=== PATIENT | female | born 1960 | race Caucasian/White ===

== ENCOUNTER 2017-06-14 18:34 | Inpatient (IN) | payer OTHER ==
[~2017-06-14] VITALS: Ht 172.7 cm; Wt 83.3 kg
[~2017-06-14 18:34] MED LIST: AMOX1TAB61 PO; IPRA4AER IH; NYST100054 SWSW; TRAM50TA PO; Vancomycin Hcl PO
[2017-06-14] MEDS ORDERED: IV NORMAL SALINE 1000ML BAG 1,000 ML IV SCH ×2 (18:41→20:44)
[2017-06-14] MEDS ORDERED: methylPREDNISolone SOD SUCC PF 125 MG/2 ML VIAL. ONE (18:43)
[2017-06-14] MEDS ORDERED: IPRATRPIUM/ALBUTEROL 0.5/2.5MG 3 ML NEBU. NEB ONE ×3 (18:45)
[2017-06-14] MEDS ORDERED: 0.9 % SODIUM CHLORIDE 10 ML DISP.SYRIN. IV PRN (18:45)
[2017-06-14] MEDS ORDERED: methylPREDNISolone SOD SUCC PF 125 MG/2 ML VIAL. IV ONE (18:45)
--- NOTE | 2017-06-14 18:45 | PHYS DOC ---
Past Medical History Past Medical History: COPD Past Surgical History: No Surgical History Smoking: Cigarettes, Less than 1pk/day Alcohol Use: Occasionally Drug Use: None Adult General Chief Complaint Chief Complaint: SHORTNESS OF BREATH HPI HPI This patient is a pleasant 56-year-old female with a reported history of COPD recently completed a course of steroids who presents with shortness of breath that began 4 days ago. She is normally on a metered-dose inhaler at home and doing nebs as needed but she became progressively short of breath despite treatments. Patient is the primary historian but is having difficulty giving me a history secondary to respiratory distress. She denies any headache, fevers, chills but is having some chest pain with her shortness of breath that began with this increased tightness. She denies any trauma to her chest trauma to her lower legs lower leg swelling or pain. Patient denies any change in medications other than the fact she completed a course of steroids several days ago. She denies any travel outside the country or recent anabiotic use. Differential diagnosis: Acute myocardial ischemia, heart failure, cardiac tamponade, bronchospasm, pulmonary embolism, pneumothorax, pulmonary infection i.e. bronchitis or pneumonia, upper airway obstruction, anaphylaxis, aspiration , psychogenic, pulmonary contusion, toxidrome, pneumomediastinum, noncardiogenic pulmonary edema or ARDS, COPD, tuberculosis, cystic fibrosis, asthma, high altitude pulmonary edema, valvular dysfunction, cardiac dysrhythmia , stroke, neuromuscular diseases like myasthenia gravis gravis, ALS, Guillain- Freedman syndrome, metabolic acidosis to include diabetic ketoacidosis, sepsis, and obstructive disorders like massive obesity Was considered upon arrival given the patient's severity of symptoms 3 duo nebs or immediately ordered as well as an EKG, Solu-Medrol, IV Hep-Lock 2 as well as BiPAP machine. Because of patient's tachycardia immediate EKG was completed EKG timed 6:52 PM read by me 06/14/2017 shows a heart rate of 117. The P wave there were QRS sinus tachycardia there is a normal UT interval 146 which is normal QRS width of 86 which is normal, QTC which is 422 which is normal. There is some watered movement artifacts but there is no clear signs of cardiac ischemia with ST segment elevation or T-wave changes consistent with that finding. Review of Systems Review of Systems Constitutional: Denies fever or chills [] Eyes: Denies change in visual acuity, redness, or eye pain [] HENT: Denies nasal congestion or sore throat [] Respiratory: Complains of extreme shortness of breath with a nonproductive cough. Cardiovascular: No additional information not addressed in HPI [] GI: Denies abdominal pain, nausea, vomiting, bloody stools or diarrhea [] : Denies dysuria or hematuria [] Musculoskeletal: Denies back pain or joint pain [] Integument: Denies rash or skin lesions [] Neurologic: Denies headache, focal weakness or sensory changes [] Endocrine: Denies polyuria or polydipsia [] All other systems were reviewed and found to be within normal limits, except as documented in this note. Current Medications Current Medications Current Medications Medications (Trade) Dose Ordered Sig/Ken Start Time Stop Time Status Last Admin Dose Admin Albuterol/ Ipratropium (Duoneb) 3 ml 1X ONCE 06/14/17 18:45 06/14/17 18:49 DC 06/14/17 19:07 3 ML Lorazepam (Ativan) 2 mg STK-MED ONCE 06/14/17 18:43 06/14/17 18:44 DC Methylprednisolone Sodium Succinate (SOLU-Medrol 125MG VIAL) 125 mg STK-MED ONCE 06/14/17 18:43 06/14/17 18:44 DC Sodium Chloride (Normal Saline Flush) 10 ml QSHIFT PRN 06/14/17 18:45 Allergies Allergies Allergies Coded Allergies Type Severity Reaction Last Updated Verified codeine Adverse Reaction Intermediate Nausea and Vomiting 10/28/15 Yes Physical Exam Physical Exam Vital signs noted on arrival patient had to be tachypneic and tachycardic not hypoxic because of being on the nasal cannula is at this time satting 97% 4 L nasal cannula as Constitutional: As thin and cachectic she is in obvious distress she is not diaphoretic but she is exhibiting respiratory distress likely be able speak 2-5 word sentences, she is having some retractions and visual accessory muscle use. She is sitting in a tripod position with pursed lip breathing. HENT: Normocephalic, atraumatic, bilateral external ears normal, oropharynx dry no oral exudates she does have poor dentition, nose normal. [] Eyes: PERRLA, EOMI, conjunctiva normal, no discharge. [] Neck: Normal range of motion, no tenderness, supple, no stridor. [] Cardiovascular: Patient's heart rate is tachycardic with no murmurs, rubs or rubs. Lungs & Thorax: She has significant prolonged exhalation with quiet breath sounds obvious retractions there is some mild diaphoresis across her chest wall Abdomen: Bowel sounds normal, soft, no tenderness, no masses, no pulsatile masses. [] Skin: Warm, diaphoresis without erythema rash on her chest wall Extremities: No tenderness, no cyanosis, no clubbing, ROM intact, no edema. [] Neurologic: Alert and oriented X 3, normal motor function, normal sensory function, no focal deficits noted. [] Psychologic: She is very anxious having difficulty breathing sitting in a tripod position with pursed lip breathing Current Patient Data Vital Signs Vital Signs Date Time Temp Pulse Resp B/P (MAP) Pulse Ox O2 Delivery O2 Flow Rate FiO2 06/14/17 20:00 109 21 112/62 (79) 100 BiPAP/CPAP 06/14/17 18:35 97.6 97.6 Lab Values Laboratory Tests Test 06/14/17 18:40 06/14/17 18:45 06/14/17 19:05 06/14/17 20:05 Sodium Level 140 mmol/L (136-145) Potassium Level 3.9 mmol/L (3.5-5.1) Chloride Level 103 mmol/L (98-107) Carbon Dioxide Level 28 mmol/L (21-32) Anion Gap 9 (6-14) Blood Urea Nitrogen 12 mg/dL (7-20) Creatinine 0.8 mg/dL (0.6-1.0) Estimated GFR (Cockcroft-Gault) 74.5 Glucose Level 128 mg/dL (70-99) H Lactic Acid Level 1.7 mmol/L (0.4-2.0) Calcium Level 9.3 mg/dL (8.5-10.1) Magnesium Level 1.8 mg/dL (1.8-2.4) Total Bilirubin 0.4 mg/dL (0.2-1.0) Direct Bilirubin 0.1 mg/dL (0.0-0.2) Aspartate Amino Transferase (AST) 17 U/L (15-37) Alanine Aminotransferase (ALT) 23 U/L (14-59) Alkaline Phosphatase 75 U/L (46-116) Creatine Kinase 116 U/L (26-192) Creatine Kinase MB (Mass) 2.0 ng/mL (0.0-3.6) Creatine Kinase MB Relative Index 1.7 % (0-4) Troponin I Quantitative < 0.017 ng/mL (0.000-0.055) OX-Gav-A-Type Natriuretic Peptide 183 pg/mL (0-124) H Total Protein 7.9 g/dL (6.4-8.2) Albumin 4.0 g/dL (3.4-5.0) Lipase 150 U/L (73-393) Thyroid Stimulating Hormone (TSH) 4.936 uIU/mL (0.358-3.74) H White Blood Count 10.5 x10^3/uL (4.0-11.0) Red Blood Count 5.06 x10^6/uL (3.50-5.40) Hemoglobin 15.1 g/dL (12.0-15.5) Hematocrit 45.8 % (36.0-47.0) Mean Corpuscular Volume 91 fL (79-100) Mean Corpuscular Hemoglobin 30 pg (25-35) Mean Corpuscular Hemoglobin Concent 33 g/dL (31-37) Red Cell Distribution Width 14.1 % (11.5-14.5) Platelet Count 307 x10^3/uL (140-400) Neutrophils (%) (Auto) 53 % (31-73) Lymphocytes (%) (Auto) 29 % (24-48) Monocytes (%) (Auto) 10 % (0-9) H Eosinophils (%) (Auto) 8 % (0-3) H Basophils (%) (Auto) 1 % (0-3) Neutrophils # (Auto) 5.5 x10^3uL (1.8-7.7) Lymphocytes # (Auto) 3.0 x10^3/uL (1.0-4.8) Monocytes # (Auto) 1.0 x10^3/uL (0.0-1.1) Eosinophils # (Auto) 0.8 x10^3/uL (0.0-0.7) H Basophils # (Auto) 0.1 x10^3/uL (0.0-0.2) Influenza Type A Antigen Negative (NEGATIVE) Influenza Type B Antigen Negative (NEGATIVE) O2 Saturation 98 % (92-99) Arterial Blood pH 7.34 (7.35-7.45) L Arterial Blood pCO2 at Patient Temp 47 mmHg (35-46) H Arterial Blood pO2 at Patient Temp 110 mmHg (75-108) H Arterial Blood HCO3 25 mmol/L (21-28) Arterial Blood Base Excess -1 mmol/L (-3-3) FiO2 35.0 Laboratory Tests 06/14/17 18:45 Laboratory Tests 06/14/17 18:40 EKG EKG [] Radiology/Procedures Radiology/Procedures []Since chest x-ray single AP view read by me demonstrates hyperinflation with some blunted costophrenic angles possible slight pleural effusion of the bases bilaterally no acute infiltrate noted there is no card or megaly, no clear signs of congestive heart failure patient is a questionable calcified nodule in the left lower lung base. Time of chest x-rays 7:19 PM 06/14/2017 Course & Med Decision Making Course & Med Decision Making Pertinent Labs and Imaging studies reviewed. (See chart for details) []She presents with Differential diagnosis: Acute myocardial ischemia, heart failure, cardiac tamponade, bronchospasm, pulmonary embolism, pneumothorax, pulmonary infection i.e. bronchitis or pneumonia, upper airway obstruction, anaphylaxis, aspiration, psychogenic, pulmonary contusion, toxidrome, pneumomediastinum, noncardiogenic pulmonary edema or ARDS, COPD, tuberculosis, cystic fibrosis, asthma, high altitude pulmonary edema, valvular dysfunction, cardiac dysrhythmia, stroke, neuromuscular diseases like myasthenia gravis gravis, ALS, Guillain-Freedman syndrome, metabolic acidosis to include diabetic ketoacidosis, sepsis, and obstructive disorders like massive obesity her shortness of breath. My initial consideration as COPD given her history and physical exam findings. Upon immediate arrival patient was given DuoNeb treatments 3, slightly Medrol, fluids and antianxiety medications. Time is now 7:20 PM patient is felt markedly improved her saturations are 100% on BiPAP mask. She has no lower anxious no longer diaphoretic she is moving more air although she is exhibiting more wheezing in all lung aguilar this is apparent that her bronchospasm was pretty severe and is now improved. 7:40 PM patient's initial troponin is negative, patient's CMP is unremarkable, patient's proBNP is 178 which is mildly elevated but given her symptoms doubt congestive heart failure. Patient felt markedly improved still on BiPAP she'll be admitted to the hospital after review of her chest x-ray demonstrates no occult infiltrate. We will add a respiratory fluoroquinolone to her treatment plan and admitted her to internal medicine service. Seen Dr. LYONS the past for her respiratory difficulties and will consult him as a assessment nurse practitioner. Tribal Judge note: Dr. Rai Tribal Judge called at of the service 8:20 p.m. Consult called back at 8:21 pm Discussed the case I presented and they agreed with admission. Time of acceptance a 8:21 pm I spent approximately 45-50 minutes working and engaged directly in the patient care providing critical care evaluation this includes but not limited to time spent engaged in work directly related to the individual patients care. I spent time at the bedside, reviewing test results, discussing the case with staff, documenting the medical record and time spent with EMS discussing specific treatment issues when the patient presented and during his evaluation. Time is now 8:40 PM patient is resting quietly On BiPAP machine patient's ABG completed at approximately 8:13 p.m. demonstrates a pH is 7.34 PCO2 of 47 PO2 109 bicarbonate 25 base excess is -1. Patient's is resting comfortably she is likely a mild CO2 retainer given her COPD but she is resting calmly no changes in the BiPAP will be made at this time. Dragon Disclaimer Dragon Disclaimer This electronic medical record was generated, in whole or in part, using a voice recognition dictation system. Departure Departure Impression: Primary Impression: COPD exacerbation Additional Impressions: Chest pain Hypothyroidism Disposition: 09 ADMITTED INPATIENT Admitting Physician: Other Condition: GUARDED Referrals: TRINY SOLO (PCP) Problem Qualifiers CLIFFORD VICENTE MD Jun 14, 2017 18:45
[2017-06-14 18:52] LABS: BASO # 0.1 x10^3/uL (0.0-0.2); BASO % 1 % (0-3); EOS % 8 % (0-3); HEMATOCRIT 45.8 % (36.0-47.0); HEMOGLOBIN 15.1 g/dL (12.0-15.5); LYMPH % 29 % (24-48); MEAN CORPUSCULAR HEMOGLOBIN 30 pg (25-35); MEAN CORPUSCULAR HGB CONC 33 g/dL (31-37); MEAN CORPUSCULAR VOLUME 91 fL (79-100); MONO % 10 % (0-9); NEUT % 53 % (31-73); PLATELET COUNT 307 x10^3/uL (140-400); RED BLOOD COUNT 5.06 x10^6/uL (3.50-5.40); RED CELL DISTRIBUTION WIDTH 14.1 % (11.5-14.5); WHITE BLOOD COUNT 10.5 x10^3/uL (4.0-11.0)
--- NOTE | 2017-06-14 18:55 | EKG ---
[facility] [address] [place] [address] Test Date: 2017-06-14 Test Time: 18:52:44 Pat Name: CRESCENCIO BALL Department: Room: Gender: F Inventory Management Specialist: ELVA : 1960 Requested By: CLIFFORD VICENTE Order Number: [id number] Reading MD: Herb Bernabe MD Measurements Intervals [place] Rate: 117 P: 90 NE: 146 QRS: 63 QRSD: 86 T: 38 QT: 314 QTc: 442 Interpretive Statements SINUS TACHYCARDIA Electronically Signed On 06-16-2017 16:35:40 BOARD WINDER by Herb Bernabe MD
[2017-06-14 19:04] LABS: CALCIUM 9.3 mg/dL (8.5-10.1); CREATININE 0.8 mg/dL (0.6-1.0); GFR 74.5; POTASSIUM 3.9 mmol/L (3.5-5.1)
[2017-06-14 19:18] LABS: DIRECT BILIRUBIN 0.1 mg/dL (0.0-0.2); MAGNESIUM 1.8 mg/dL (1.8-2.4); TOTAL BILIRUBIN 0.4 mg/dL (0.2-1.0); TOTAL PROTEIN 7.9 g/dL (6.4-8.2)
[2017-06-14 19:32] LABS: OBC FLU VALID
[2017-06-14 20:15] LABS: HCO3 ABG 25 mmol/L (21-28); PCO2 ABG 47 mmHg (35-46); PH ABG 7.34 (7.35-7.45); PO2 ABG 110 mmHg (75-108); SAT O2 ABG 98 % (92-99)
[2017-06-14] MEDS ORDERED: fentaNYL PF VIAL 100 MCG/2 ML VIAL IV PRN (20:45)
[2017-06-14] MEDS ORDERED: ACETAMINOPHEN 325 MG TABLET. PO PRN (20:45)
[2017-06-14] MEDS ORDERED: ONDANSETRON PF 4 MG/2 ML VIAL. IV PRN (20:45)
[2017-06-14 22:00] VITALS: BP 133/94
[2017-06-14 22:15] VITALS: BP 111/61
[2017-06-14 22:30] VITALS: BP 91/61
[2017-06-14 22:45] VITALS: BP 97/64
[2017-06-14 23:15] VITALS: BP 101/64
[2017-06-14] MEDS ORDERED: PNEUMOCOCCAL VAX SCREEN BY RX. MC PRN (23:15)
[2017-06-15] VITALS (15 sets, daily range): BP systolic 84–133; BP diastolic 52–78
--- NOTE | 2017-06-15 00:48 | HP ---
ADMIT DATE: 06/14/2017 CHIEF COMPLAINT: Shortness of breath. HISTORY OF PRESENT ILLNESS: The patient is a 56-year-old smoker with history of COPD, who presented to the Emergency Room with a 4-day history of shortness of breath. She actually had a recent course of steroids for shortness of breath, has a meter dose inhalers as well as nebs at home and became progressively short of breath despite all her inhalers and nebulizers. She denies any fevers or chills. Denies any new cough, although has a chronic smoker's cough, which may have over the past 2 days, changed a little bit in its productiveness. She denies any stuffy or runny nose, any headaches or sore throat. In the Emergency Room, she was found with a significant hypoxia as well as tachycardia and was therefore admitted for further management. PAST MEDICAL HISTORY: COPD. FAMILY HISTORY: No lung or heart history known in family. SOCIAL HISTORY: Lives with her . Smokes less than a pack. Denies any alcohol or drug use. ALLERGIES: CODEINE, causing nausea. MEDICATIONS: MAR reconciled with home medications. REVIEW OF SYSTEMS: Positive as per HPI. She specifically denies any fevers or chills, any headaches or any nausea or vomiting. May have had some chest pain when she was severely short of breath prior to admission, now resolved and no GI symptoms. Rest of organ system review is negative. PHYSICAL EXAMINATION: VITAL SIGNS: From today show a blood pressure of 97/64 and heart rate of 102. She is afebrile and currently on BiPAP. GENERAL: This is an obese 56-year-old woman, alert and oriented, in mild respiratory distress, BiPAP in place. HEENT: Shows no scleral icterus. NECK: Supple. LUNGS: Have wheezes bilaterally. HEART: Tachycardic. ABDOMEN: Positive bowel sounds. Soft and nontender. EXTREMITIES: Show no edema. SKIN: Warm, soft and dry. NEUROLOGICAL: She appears grossly intact. LABORATORY DATA: CBC with a WBC of 10.5, hemoglobin 15.1 and platelets of 307. BUN and creatinine of 12 and 0.8. Normal electrolytes. Normal LFTs. TSH at 4.9. Troponin negative. Pro-BNP is 183. Serologies for flu is negative. IMAGING STUDIES: A chest x-ray reviewed by myself shows mild flattening of the diaphragms and no acute process. ASSESSMENT AND PLAN: The patient is a 56-year-old woman presenting with a chronic obstructive pulmonary disease exacerbation. She has been started on IV steroids, currently on bilevel positive airway pressure. We will continue nebulizers as well. Her home medications consist only of nebulizers, inhalers and mucolytics. We will start her on Mucinex here as needed. Obtain pulmonary consult in the morning. Because of her having had chest pain prior to admission, a Troponin series will be obtained. Initial one was normal. If need be, Cardiology will be consulted in the morning. Doubt this is cardiac in etiology but rather related to her chronic obstructive pulmonary disease. She continues to smoke despite having had chronic obstructive pulmonary disease for quite a while and frequent exacerbations, although never as severe as this. She is now more convinced that at this time to quit smoking. Nicotine patch will be made available to her p.r.n. ANDERS HEARN MD DR: MONIK/manny JOB#: [id number] / [id number] TRINY Johnston
[2017-06-15] MEDS ORDERED: methylPREDNISolone SOD SUCC PF 40 MG/ML VIAL. IV SCH (06:00)
--- NOTE | 2017-06-15 08:28 | RAD ---
EXAM: Chest one view. HISTORY: Shortness of breath. COMPARISON: 12/17/2015. FINDINGS: A frontal view of the chest is obtained. Hyperinflation is consistent with chronic obstructive pulmonary disease. There are no confluent infiltrates. There is no pneumothorax or pleural effusion. The heart is not enlarged. IMPRESSION: 1. Chronic obstructive pulmonary disease. No confluent infiltrates.
[2017-06-15] MEDS ORDERED: PNEUMOC CONJ VACC 23-VALENT 0.5 ML VIAL. VAX IM ONE (09:00)
[2017-06-15] MEDS: IPRATRPIUM/ALBUTEROL 0.5/2.5MG 3 ML NEBU. NEB SCH ×4 (09:15→20:17)
[2017-06-15] MEDS: NICOTINE 21MG PATCH. TD SCH (11:16)
--- NOTE | 2017-06-15 12:30 | PDOC ---
PULMONARY PROGRESS NOTES Vitals Vital Signs Date Time Temp Pulse Resp B/P (MAP) Pulse Ox O2 Delivery O2 Flow Rate FiO2 06/15/17 11:00 98.2 98 25 101/64 (76) 94 Nasal Cannula 2.0 98.2 General: Alert, No acute distress Lungs: Other Cardiovascular: S1 Abdomen: Soft Extremities: Other Labs Laboratory Tests Test 06/14/17 18:40 06/14/17 18:45 06/14/17 19:05 06/14/17 20:05 Sodium Level 140 mmol/L (136-145) Potassium Level 3.9 mmol/L (3.5-5.1) Chloride Level 103 mmol/L (98-107) Carbon Dioxide Level 28 mmol/L (21-32) Anion Gap 9 (6-14) Blood Urea Nitrogen 12 mg/dL (7-20) Creatinine 0.8 mg/dL (0.6-1.0) Estimated GFR (Cockcroft-Gault) 74.5 Glucose Level 128 mg/dL (70-99) Lactic Acid Level 1.7 mmol/L (0.4-2.0) Calcium Level 9.3 mg/dL (8.5-10.1) Magnesium Level 1.8 mg/dL (1.8-2.4) Total Bilirubin 0.4 mg/dL (0.2-1.0) Direct Bilirubin 0.1 mg/dL (0.0-0.2) Aspartate Amino Transf (AST/SGOT) 17 U/L (15-37) Alanine Aminotransferase (ALT/SGPT) 23 U/L (14-59) Alkaline Phosphatase 75 U/L (46-116) Creatine Kinase 116 U/L (26-192) Creatine Kinase MB (Mass) 2.0 ng/mL (0.0-3.6) Creatine Kinase MB Relative Index 1.7 % (0-4) Troponin I Quantitative < 0.017 ng/mL (0.000-0.055) EE-Xxl-N-Type Natriuretic Peptide 183 pg/mL (0-124) Total Protein 7.9 g/dL (6.4-8.2) Albumin 4.0 g/dL (3.4-5.0) Lipase 150 U/L (73-393) Thyroid Stimulating Hormone (TSH) 4.936 uIU/mL (0.358-3.74) White Blood Count 10.5 x10^3/uL (4.0-11.0) Red Blood Count 5.06 x10^6/uL (3.50-5.40) Hemoglobin 15.1 g/dL (12.0-15.5) Hematocrit 45.8 % (36.0-47.0) Mean Corpuscular Volume 91 fL (79-100) Mean Corpuscular Hemoglobin 30 pg (25-35) Mean Corpuscular Hemoglobin Concent 33 g/dL (31-37) Red Cell Distribution Width 14.1 % (11.5-14.5) Platelet Count 307 x10^3/uL (140-400) Neutrophils (%) (Auto) 53 % (31-73) Lymphocytes (%) (Auto) 29 % (24-48) Monocytes (%) (Auto) 10 % (0-9) Eosinophils (%) (Auto) 8 % (0-3) Basophils (%) (Auto) 1 % (0-3) Neutrophils # (Auto) 5.5 x10^3uL (1.8-7.7) Lymphocytes # (Auto) 3.0 x10^3/uL (1.0-4.8) Monocytes # (Auto) 1.0 x10^3/uL (0.0-1.1) Eosinophils # (Auto) 0.8 x10^3/uL (0.0-0.7) Basophils # (Auto) 0.1 x10^3/uL (0.0-0.2) Influenza Type A Antigen Negative (NEGATIVE) Influenza Type B Antigen Negative (NEGATIVE) O2 Saturation 98 % (92-99) Arterial Blood pH 7.34 (7.35-7.45) Arterial Blood pCO2 at Patient Temp 47 mmHg (35-46) Arterial Blood pO2 at Patient Temp 110 mmHg (75-108) Arterial Blood HCO3 25 mmol/L (21-28) Arterial Blood Base Excess -1 mmol/L (-3-3) FiO2 35.0 Test 06/15/17 02:50 06/15/17 08:45 Troponin I Quantitative < 0.017 ng/mL (0.000-0.055) < 0.017 ng/mL (0.000-0.055) Laboratory Tests Test 06/14/17 18:40 06/14/17 18:45 06/14/17 19:05 06/14/17 20:05 Sodium Level 140 mmol/L (136-145) Potassium Level 3.9 mmol/L (3.5-5.1) Chloride Level 103 mmol/L (98-107) Carbon Dioxide Level 28 mmol/L (21-32) Anion Gap 9 (6-14) Blood Urea Nitrogen 12 mg/dL (7-20) Creatinine 0.8 mg/dL (0.6-1.0) Estimated GFR (Cockcroft-Gault) 74.5 Glucose Level 128 mg/dL (70-99) Lactic Acid Level 1.7 mmol/L (0.4-2.0) Calcium Level 9.3 mg/dL (8.5-10.1) Magnesium Level 1.8 mg/dL (1.8-2.4) Total Bilirubin 0.4 mg/dL (0.2-1.0) Direct Bilirubin 0.1 mg/dL (0.0-0.2) Aspartate Amino Transf (AST/SGOT) 17 U/L (15-37) Alanine Aminotransferase (ALT/SGPT) 23 U/L (14-59) Alkaline Phosphatase 75 U/L (46-116) Creatine Kinase 116 U/L (26-192) Creatine Kinase MB (Mass) 2.0 ng/mL (0.0-3.6) Creatine Kinase MB Relative Index 1.7 % (0-4) Troponin I Quantitative < 0.017 ng/mL (0.000-0.055) YU-Irh-N-Type Natriuretic Peptide 183 pg/mL (0-124) Total Protein 7.9 g/dL (6.4-8.2) Albumin 4.0 g/dL (3.4-5.0) Lipase 150 U/L (73-393) Thyroid Stimulating Hormone (TSH) 4.936 uIU/mL (0.358-3.74) White Blood Count 10.5 x10^3/uL (4.0-11.0) Red Blood Count 5.06 x10^6/uL (3.50-5.40) Hemoglobin 15.1 g/dL (12.0-15.5) Hematocrit 45.8 % (36.0-47.0) Mean Corpuscular Volume 91 fL (79-100) Mean Corpuscular Hemoglobin 30 pg (25-35) Mean Corpuscular Hemoglobin Concent 33 g/dL (31-37) Red Cell Distribution Width 14.1 % (11.5-14.5) Platelet Count 307 x10^3/uL (140-400) Neutrophils (%) (Auto) 53 % (31-73) Lymphocytes (%) (Auto) 29 % (24-48) Monocytes (%) (Auto) 10 % (0-9) Eosinophils (%) (Auto) 8 % (0-3) Basophils (%) (Auto) 1 % (0-3) Neutrophils # (Auto) 5.5 x10^3uL (1.8-7.7) Lymphocytes # (Auto) 3.0 x10^3/uL (1.0-4.8) Monocytes # (Auto) 1.0 x10^3/uL (0.0-1.1) Eosinophils # (Auto) 0.8 x10^3/uL (0.0-0.7) Basophils # (Auto) 0.1 x10^3/uL (0.0-0.2) Influenza Type A Antigen Negative (NEGATIVE) Influenza Type B Antigen Negative (NEGATIVE) O2 Saturation 98 % (92-99) Arterial Blood pH 7.34 (7.35-7.45) Arterial Blood pCO2 at Patient Temp 47 mmHg (35-46) Arterial Blood pO2 at Patient Temp 110 mmHg (75-108) Arterial Blood HCO3 25 mmol/L (21-28) Arterial Blood Base Excess -1 mmol/L (-3-3) FiO2 35.0 Test 06/15/17 02:50 06/15/17 08:45 Troponin I Quantitative < 0.017 ng/mL (0.000-0.055) < 0.017 ng/mL (0.000-0.055) Medications Active Scripts Medications Dose Route/Sig Max Daily Dose Days Date Category Combivent Respimat Inhal (Ipratropium/Albuterol Sulfate) 4 Gm Aer.w.adap 1 Puff IH QID 11/09/15 Reported Combivent Respimat Inhal (Ipratropium/Albuterol Sulfate) 4 Gm Aer.w.adap 1 Puff IH QID 11/09/15 Reported Tramadol Hcl 50 Mg Tablet 50 Mg PO PRN Q6HRS PRN 11/09/15 Rx Impression . FULL CONSULT DICTATED AECOPD RESP FAILURE TOBACCO USE TRANSFER TO FLOOR SEE ORDERS THANKS NIKKI RONQUILLO MD Jun 15, 2017 12:30
--- NOTE | 2017-06-15 12:57 | PDOC ---
PROGRESS NOTES Chief Complaint Chief Complaint COPD Exacerbation Colitis Hypothyroidism Chest pain History of Present Illness History of Present Illness Pt seen and examined in the ICU c/o productive cough and SOA Vitals Vitals Vital Signs Date Time Temp Pulse Resp B/P (MAP) Pulse Ox O2 Delivery O2 Flow Rate FiO2 06/15/17 11:00 98.2 98 25 101/64 (76) 94 Nasal Cannula 2.0 98.2 Physical Exam General: Alert, Oriented X3, No acute distress Heart: Regular rate, No murmurs Lungs: Clear, Other Abdomen: Normal bowel sounds, Soft, No tenderness Extremities: No cyanosis, Normal pulses Skin: No rashes, No breakdown Labs LABS Laboratory Tests Test 06/14/17 18:40 06/14/17 18:45 06/14/17 19:05 06/14/17 20:05 Sodium Level 140 mmol/L (136-145) Potassium Level 3.9 mmol/L (3.5-5.1) Chloride Level 103 mmol/L (98-107) Carbon Dioxide Level 28 mmol/L (21-32) Anion Gap 9 (6-14) Blood Urea Nitrogen 12 mg/dL (7-20) Creatinine 0.8 mg/dL (0.6-1.0) Estimated GFR (Cockcroft-Gault) 74.5 Glucose Level 128 mg/dL (70-99) Lactic Acid Level 1.7 mmol/L (0.4-2.0) Calcium Level 9.3 mg/dL (8.5-10.1) Magnesium Level 1.8 mg/dL (1.8-2.4) Total Bilirubin 0.4 mg/dL (0.2-1.0) Direct Bilirubin 0.1 mg/dL (0.0-0.2) Aspartate Amino Transf (AST/SGOT) 17 U/L (15-37) Alanine Aminotransferase (ALT/SGPT) 23 U/L (14-59) Alkaline Phosphatase 75 U/L (46-116) Creatine Kinase 116 U/L (26-192) Creatine Kinase MB (Mass) 2.0 ng/mL (0.0-3.6) Creatine Kinase MB Relative Index 1.7 % (0-4) Troponin I Quantitative < 0.017 ng/mL (0.000-0.055) NU-Eaw-U-Type Natriuretic Peptide 183 pg/mL (0-124) Total Protein 7.9 g/dL (6.4-8.2) Albumin 4.0 g/dL (3.4-5.0) Lipase 150 U/L (73-393) Thyroid Stimulating Hormone (TSH) 4.936 uIU/mL (0.358-3.74) White Blood Count 10.5 x10^3/uL (4.0-11.0) Red Blood Count 5.06 x10^6/uL (3.50-5.40) Hemoglobin 15.1 g/dL (12.0-15.5) Hematocrit 45.8 % (36.0-47.0) Mean Corpuscular Volume 91 fL (79-100) Mean Corpuscular Hemoglobin 30 pg (25-35) Mean Corpuscular Hemoglobin Concent 33 g/dL (31-37) Red Cell Distribution Width 14.1 % (11.5-14.5) Platelet Count 307 x10^3/uL (140-400) Neutrophils (%) (Auto) 53 % (31-73) Lymphocytes (%) (Auto) 29 % (24-48) Monocytes (%) (Auto) 10 % (0-9) Eosinophils (%) (Auto) 8 % (0-3) Basophils (%) (Auto) 1 % (0-3) Neutrophils # (Auto) 5.5 x10^3uL (1.8-7.7) Lymphocytes # (Auto) 3.0 x10^3/uL (1.0-4.8) Monocytes # (Auto) 1.0 x10^3/uL (0.0-1.1) Eosinophils # (Auto) 0.8 x10^3/uL (0.0-0.7) Basophils # (Auto) 0.1 x10^3/uL (0.0-0.2) Influenza Type A Antigen Negative (NEGATIVE) Influenza Type B Antigen Negative (NEGATIVE) O2 Saturation 98 % (92-99) Arterial Blood pH 7.34 (7.35-7.45) Arterial Blood pCO2 at Patient Temp 47 mmHg (35-46) Arterial Blood pO2 at Patient Temp 110 mmHg (75-108) Arterial Blood HCO3 25 mmol/L (21-28) Arterial Blood Base Excess -1 mmol/L (-3-3) FiO2 35.0 Test 06/15/17 02:50 06/15/17 08:45 Troponin I Quantitative < 0.017 ng/mL (0.000-0.055) < 0.017 ng/mL (0.000-0.055) Review of Systems Review of Systems General: fatigue GI: No n/v Resp: productive cough Assessment and Plan Assessmemt and Plan Problems Medical Problems: (1) Chest pain Status: Acute (2) COPD exacerbation Status: Acute (3) Hypothyroidism Status: Acute Assessment: COPD Exacerbation Plan: Recheck labs in am Continue Antibiotics Continue breathing treatment and o2 monitoring Continue home medications Await pulmonology input Problems: Comment Review of Relevant I have reviewed the following items leila (where applicable) has been applied. Labs Laboratory Tests Test 06/14/17 18:40 06/14/17 18:45 06/14/17 19:05 06/14/17 20:05 Sodium Level 140 mmol/L (136-145) Potassium Level 3.9 mmol/L (3.5-5.1) Chloride Level 103 mmol/L (98-107) Carbon Dioxide Level 28 mmol/L (21-32) Anion Gap 9 (6-14) Blood Urea Nitrogen 12 mg/dL (7-20) Creatinine 0.8 mg/dL (0.6-1.0) Estimated GFR (Cockcroft-Gault) 74.5 Glucose Level 128 mg/dL (70-99) Lactic Acid Level 1.7 mmol/L (0.4-2.0) Calcium Level 9.3 mg/dL (8.5-10.1) Magnesium Level 1.8 mg/dL (1.8-2.4) Total Bilirubin 0.4 mg/dL (0.2-1.0) Direct Bilirubin 0.1 mg/dL (0.0-0.2) Aspartate Amino Transf (AST/SGOT) 17 U/L (15-37) Alanine Aminotransferase (ALT/SGPT) 23 U/L (14-59) Alkaline Phosphatase 75 U/L (46-116) Creatine Kinase 116 U/L (26-192) Creatine Kinase MB (Mass) 2.0 ng/mL (0.0-3.6) Creatine Kinase MB Relative Index 1.7 % (0-4) Troponin I Quantitative < 0.017 ng/mL (0.000-0.055) NH-Sbr-S-Type Natriuretic Peptide 183 pg/mL (0-124) Total Protein 7.9 g/dL (6.4-8.2) Albumin 4.0 g/dL (3.4-5.0) Lipase 150 U/L (73-393) Thyroid Stimulating Hormone (TSH) 4.936 uIU/mL (0.358-3.74) White Blood Count 10.5 x10^3/uL (4.0-11.0) Red Blood Count 5.06 x10^6/uL (3.50-5.40) Hemoglobin 15.1 g/dL (12.0-15.5) Hematocrit 45.8 % (36.0-47.0) Mean Corpuscular Volume 91 fL (79-100) Mean Corpuscular Hemoglobin 30 pg (25-35) Mean Corpuscular Hemoglobin Concent 33 g/dL (31-37) Red Cell Distribution Width 14.1 % (11.5-14.5) Platelet Count 307 x10^3/uL (140-400) Neutrophils (%) (Auto) 53 % (31-73) Lymphocytes (%) (Auto) 29 % (24-48) Monocytes (%) (Auto) 10 % (0-9) Eosinophils (%) (Auto) 8 % (0-3) Basophils (%) (Auto) 1 % (0-3) Neutrophils # (Auto) 5.5 x10^3uL (1.8-7.7) Lymphocytes # (Auto) 3.0 x10^3/uL (1.0-4.8) Monocytes # (Auto) 1.0 x10^3/uL (0.0-1.1) Eosinophils # (Auto) 0.8 x10^3/uL (0.0-0.7) Basophils # (Auto) 0.1 x10^3/uL (0.0-0.2) Influenza Type A Antigen Negative (NEGATIVE) Influenza Type B Antigen Negative (NEGATIVE) O2 Saturation 98 % (92-99) Arterial Blood pH 7.34 (7.35-7.45) Arterial Blood pCO2 at Patient Temp 47 mmHg (35-46) Arterial Blood pO2 at Patient Temp 110 mmHg (75-108) Arterial Blood HCO3 25 mmol/L (21-28) Arterial Blood Base Excess -1 mmol/L (-3-3) FiO2 35.0 Test 06/15/17 02:50 06/15/17 08:45 Troponin I Quantitative < 0.017 ng/mL (0.000-0.055) < 0.017 ng/mL (0.000-0.055) Laboratory Tests Test 06/14/17 18:40 06/14/17 18:45 06/14/17 19:05 06/14/17 20:05 Sodium Level 140 mmol/L (136-145) Potassium Level 3.9 mmol/L (3.5-5.1) Chloride Level 103 mmol/L (98-107) Carbon Dioxide Level 28 mmol/L (21-32) Anion Gap 9 (6-14) Blood Urea Nitrogen 12 mg/dL (7-20) Creatinine 0.8 mg/dL (0.6-1.0) Estimated GFR (Cockcroft-Gault) 74.5 Glucose Level 128 mg/dL (70-99) Lactic Acid Level 1.7 mmol/L (0.4-2.0) Calcium Level 9.3 mg/dL (8.5-10.1) Magnesium Level 1.8 mg/dL (1.8-2.4) Total Bilirubin 0.4 mg/dL (0.2-1.0) Direct Bilirubin 0.1 mg/dL (0.0-0.2) Aspartate Amino Transf (AST/SGOT) 17 U/L (15-37) Alanine Aminotransferase (ALT/SGPT) 23 U/L (14-59) Alkaline Phosphatase 75 U/L (46-116) Creatine Kinase 116 U/L (26-192) Creatine Kinase MB (Mass) 2.0 ng/mL (0.0-3.6) Creatine Kinase MB Relative Index 1.7 % (0-4) Troponin I Quantitative < 0.017 ng/mL (0.000-0.055) OW-Hqy-U-Type Natriuretic Peptide 183 pg/mL (0-124) Total Protein 7.9 g/dL (6.4-8.2) Albumin 4.0 g/dL (3.4-5.0) Lipase 150 U/L (73-393) Thyroid Stimulating Hormone (TSH) 4.936 uIU/mL (0.358-3.74) White Blood Count 10.5 x10^3/uL (4.0-11.0) Red Blood Count 5.06 x10^6/uL (3.50-5.40) Hemoglobin 15.1 g/dL (12.0-15.5) Hematocrit 45.8 % (36.0-47.0) Mean Corpuscular Volume 91 fL (79-100) Mean Corpuscular Hemoglobin 30 pg (25-35) Mean Corpuscular Hemoglobin Concent 33 g/dL (31-37) Red Cell Distribution Width 14.1 % (11.5-14.5) Platelet Count 307 x10^3/uL (140-400) Neutrophils (%) (Auto) 53 % (31-73) Lymphocytes (%) (Auto) 29 % (24-48) Monocytes (%) (Auto) 10 % (0-9) Eosinophils (%) (Auto) 8 % (0-3) Basophils (%) (Auto) 1 % (0-3) Neutrophils # (Auto) 5.5 x10^3uL (1.8-7.7) Lymphocytes # (Auto) 3.0 x10^3/uL (1.0-4.8) Monocytes # (Auto) 1.0 x10^3/uL (0.0-1.1) Eosinophils # (Auto) 0.8 x10^3/uL (0.0-0.7) Basophils # (Auto) 0.1 x10^3/uL (0.0-0.2) Influenza Type A Antigen Negative (NEGATIVE) Influenza Type B Antigen Negative (NEGATIVE) O2 Saturation 98 % (92-99) Arterial Blood pH 7.34 (7.35-7.45) Arterial Blood pCO2 at Patient Temp 47 mmHg (35-46) Arterial Blood pO2 at Patient Temp 110 mmHg (75-108) Arterial Blood HCO3 25 mmol/L (21-28) Arterial Blood Base Excess -1 mmol/L (-3-3) FiO2 35.0 Test 06/15/17 02:50 06/15/17 08:45 Troponin I Quantitative < 0.017 ng/mL (0.000-0.055) < 0.017 ng/mL (0.000-0.055) Medications Current Medications Lorazepam (Ativan) 1 mg 1X ONCE IV Last administered on 06/14/17 19:17; Start 06/14/17 at 18:45; Stop 06/14/17 at 18:49; Status DC Sodium Chloride 1,000 ml @ 1,000 mls/hr Q1H IV Last administered on 18:41; Start 06/14/17 at 18:41; Stop 06/14/17 at 19:40; Status DC Sodium Chloride (Normal Saline Flush) 10 ml QSHIFT PRN IV AFTER MEDS AND BLOOD DRAWS; Start 06/14/17 at 18:45 Albuterol/ Ipratropium (Duoneb) 3 ml 1X ONCE NEB Last administered on 19:05; Start 06/14/17 at 18:45; Stop 06/14/17 at 18:49; Status DC Methylprednisolone Sodium Succinate (SOLU-Medrol 125MG VIAL) 125 mg 1X ONCE IV Last administered on 06/14/17 18:55; Start 06/14/17 at 18:45; Stop at 18:49; Status DC Albuterol/ Ipratropium (Duoneb) 3 ml 1X ONCE NEB Last administered on 19:06; Start 06/14/17 at 18:45; Stop 06/14/17 at 18:49; Status DC Albuterol/ Ipratropium (Duoneb) 3 ml 1X ONCE NEB Last administered on 19:07; Start 06/14/17 at 18:45; Stop 06/14/17 at 18:49; Status DC Methylprednisolone Sodium Succinate (SOLU-Medrol 125MG VIAL) 125 mg STK-MED ONCE .ROUTE ; Start 06/14/17 at 18:43; Stop 06/14/17 at 18:44; Status DC Lorazepam (Ativan) 2 mg STK-MED ONCE .ROUTE ; Start 06/14/17 at 18:43; Stop at 18:44; Status DC Ondansetron HCl (Zofran) 4 mg PRN Q8HRS PRN IV NAUSEA/VOMITING; Start at 20:45; Stop 06/15/17 at 20:44 Fentanyl Citrate (Fentanyl 2ml Vial) 50 mcg PRN Q2HR PRN IV PAIN; Start at 20:45; Stop 06/15/17 at 20:44 Sodium Chloride 1,000 ml @ 125 mls/hr Q8H IV ; Start 06/14/17 at 20:44; Stop 06/15/17 at 06:28; Status DC Acetaminophen (Tylenol) 650 mg PRN Q4HRS PRN PO FEVER; Start 06/14/17 at 20:45 ; Stop 06/15/17 at 20:44 Albuterol/ Ipratropium (Duoneb) 3 ml RTQID NEB Last administered on 06/15/17 09:15; Start 06/15/17 at 08:00; Stop 06/16/17 at 07:59 Levofloxacin/ Dextrose 150 ml @ 100 mls/hr 1X ONCE IV Last administered on 20:58; Start 06/14/17 at 20:45; Stop 06/14/17 at 22:14; Status DC Pneumococcal Polyvalent Vaccine (Pneumovax 23) 0.5 ml ONCE ONCE VAX IM Last administered on 06/15/17 11:19; Start 06/15/17 at 09:00; Stop 06/15/17 at 09 :01; Status DC Pneumococcal Polyvalent Vaccine (Do NOT chart on this placeholder) 1 each PRN 1X PRN MC SEE COMMENTS; Start 06/14/17 at 23:15; Status Cancel Methylprednisolone Sodium Succinate (SOLU-Medrol 40MG VIAL) 40 mg Q8HRS IV Last administered on 06/15/17 06:23; Start 06/15/17 at 06:00; Stop 06/15/17 at 12:28; Status DC Lorazepam (Ativan) 0.5 mg 1X ONCE IV Last administered on 06/15/17 07:13; Start 06/15/17 at 07:00; Stop 06/15/17 at 07:01; Status DC Lorazepam (Ativan) 0.5 mg PRN Q8HRS PRN PO ANXIETY / AGITATION; Start at 07:00 Nicotine (Nicoderm Cq 21mg) 1 patch DAILY TD Last administered on 06/15/17 11 :16; Start 06/15/17 at 09:00 Methylprednisolone Sodium Succinate (SOLU-Medrol 40MG VIAL) 60 mg DAILY IV ; Start 06/16/17 at 09:00 Doxycycline Hyclate (Vibra-Tab) 100 mg BID PO ; Start 06/15/17 at 13:00 Active Scripts Active Tramadol Hcl 50 Mg Tablet 50 Mg PO PRN Q6HRS PRN Reported Combivent Respimat Inhal (Ipratropium/Albuterol Sulfate) 4 Gm Aer.w.adap 1 Puff IH QID Combivent Respimat Inhal (Ipratropium/Albuterol Sulfate) 4 Gm Aer.w.adap 1 Puff IH QID Vitals/I & O Vital Sign - Last 24 Hours 06/14/17 06/14/17 06/14/17 06/14/17 18:35 18:47 19:09 19:26 Temp 97.6 97.6 Pulse 119 Resp 42 B/P (MAP) 149/97 (114) Pulse Ox 91 100 100 100 O2 Delivery Room Air BiPAP/CPAP BiPAP/CPAP BiPAP/CPAP 06/14/17 06/14/17 06/14/17 06/14/17 19:30 20:00 20:30 21:00 Pulse 116 109 105 110 Resp 21 21 22 24 B/P (MAP) 96/64 (75) 112/62 (79) 103/55 (71) Pulse Ox 100 100 99 99 O2 Delivery BiPAP/CPAP BiPAP/CPAP BiPAP/CPAP BiPAP/CPAP 06/14/17 06/14/17 06/14/17 06/14/17 21:20 22:00 22:15 22:30 Temp 98.0 98.0 Pulse 116 112 110 Resp 18 20 18 B/P (MAP) 133/94 (107) 111/61 (78) 91/61 (71) Pulse Ox 99 98 99 98 O2 Delivery BiPAP/CPAP BiPAP/CPAP BiPAP/CPAP BiPAP/CPAP 06/14/17 06/14/17 06/14/17 06/14/17 22:45 22:45 22:49 23:02 Pulse 102 Resp 21 B/P (MAP) 97/64 (75) Pulse Ox 99 98 O2 Delivery BiPAP/CPAP Bi-pap BiPAP/CPAP 06/14/17 06/14/17 06/15/17 06/15/17 23:15 23:59 00:00 01:00 Temp 98.1 98.1 Pulse 108 100 96 Resp 22 22 19 B/P (MAP) 101/64 (76) 100/61 (74) 101/55 (70) Pulse Ox 98 98 98 O2 Delivery BiPAP/CPAP Bi-pap BiPAP/CPAP BiPAP/CPAP 06/15/17 06/15/17 06/15/17 06/15/17 01:28 02:00 03:00 03:07 Pulse 97 98 Resp 15 18 B/P (MAP) 84/59 (67) 90/52 (65) Pulse Ox 98 98 98 98 O2 Delivery BiPAP/CPAP BiPAP/CPAP BiPAP/CPAP BiPAP/CPAP 06/15/17 06/15/17 06/15/17 06/15/17 04:00 04:00 05:00 05:14 Temp 97.8 97.8 Pulse 108 102 Resp 24 22 B/P (MAP) 99/71 (80) 131/74 (93) Pulse Ox 97 98 98 O2 Delivery Bi-pap BiPAP/CPAP BiPAP/CPAP BiPAP/CPAP 06/15/17 06/15/17 06/15/17 06/15/17 06:00 07:29 07:40 08:00 Temp 98.7 98.7 Pulse 119 95 96 Resp 29 16 24 B/P (MAP) 107/72 (84) 133/69 (90) 118/78 (91) Pulse Ox 99 98 98 O2 Delivery BiPAP/CPAP Nasal Cannula Nasal Cannula Nasal Cannula O2 Flow Rate 3.0 3.0 3.0 06/15/17 06/15/17 06/15/17 06/15/17 09:00 09:15 10:00 11:00 Temp 98.2 98.2 Pulse 100 102 98 Resp 28 28 25 B/P (MAP) 118/76 (90) 107/68 (81) 101/64 (76) Pulse Ox 95 93 94 94 O2 Delivery Nasal Cannula Nasal Cannula Nasal Cannula Nasal Cannula O2 Flow Rate 3.0 3.0 2.0 2.0 Intake and Output 06/14/17 06/14/17 06/15/17 15:00 23:00 07:00 Intake Total 1000 ml 550 ml Output Total 600 ml Balance 1000 ml -50 ml ROBYNIAL K III DO Jun 15, 2017 12:57
--- NOTE | 2017-06-15 16:25 | CONS ---
DATE OF CONSULTATION: 06/15/2017 ATTENDING PHYSICIAN: Dr. Rai. REASON FOR CONSULTATION: The patient seen in pulmonary consultation at the request of Dr. Rai for increasing shortness of air. HISTORY OF PRESENT ILLNESS: The patient is a ____[id number] that was last seen in my office in March 2016, COPD with exacerbation at that time. She normally is on Advair and Combivent Respimat. She presented with increasing shortness of breath. She was utilizing her nebulized treatments more frequently with no significant improvement. She presented, she was in severe respiratory distress. Initially, she required noninvasive ventilation with BiPAP. She was admitted to the Intensive Care Unit. Arterial blood gas revealed a pH of 7.34, PaCO2 of 47, pO2 of 110 on FiO2 of 35%. White count was normal. Electrolytes were noted. Chest x-ray was reviewed. There are some chronic changes. I do not appreciate any acute infiltrates. Serology for influenza was negative. The patient continues to smoke, has a cough productive of discolored sputum. She is up to date on her flu and pneumonia vaccination. PAST MEDICAL HISTORY: Otherwise remarkable for COPD. No prior history of coronary artery disease. She continues to smoke. FAMILY HISTORY: No family history of lung cancer or lung disorders. SOCIAL HISTORY: She lives with her . Smokes on a daily basis. Works part-time with no significant exposures. ALLERGIES: CODEINE, causes nausea. MEDICATIONS: List was reviewed. CURRENT MEDICATIONS: List was reviewed. REVIEW OF SYSTEMS: As indicated above, otherwise, a 10-point system was reviewed and negative. CONSTITUTIONAL: No fever or chills. HEENT: Eyes: No changes in visual acuity. HENT: No nasal congestion or sore throat. RESPIRATORY: As indicated above. CARDIOVASCULAR: Some chest tightness with increasing difficulty breathing. GASTROINTESTINAL: No nausea, vomiting or diarrhea. GENITOURINARY: No dysuria or frequency. MUSCULOSKELETAL: No localized muscle aches or joint pain. SKIN: No new skin rashes. NEUROLOGIC: No headaches, diplopia or blurred vision. PHYSICAL EXAMINATION: GENERAL: The patient was in the Intensive Care Unit. VITAL SIGNS: She was off of BiPAP. O2 saturation currently on 2 liters was 93-98%. HEENT: Eyes, the sclerae were nonicteric. NECK: Jugular venous distention was not elevated. No lymphadenopathy. CHEST: Full expansion. LUNGS: Poor airway flow with no expiratory wheeze. CARDIOVASCULAR: Regular rate and rhythm with S1, S2, no S3. ABDOMEN: Soft, nontender. EXTREMITIES: No clubbing, cyanosis or edema. NEUROLOGIC: The patient was awake, alert, following commands. A detailed neuro exam was not performed. Chest x-ray reviewed. LABORATORY DATA: As indicated above. IMPRESSION: 1. Acute respiratory failure secondary to acute exacerbation of chronic obstructive pulmonary disease. 2. Acute exacerbation of chronic obstructive pulmonary disease. 3. Acute nonspecific bronchitis. 4. Tobacco dependence. 5. Respiratory acidosis. PLAN: 1. Continue oxygen supplementation. 2. Antibiotics and steroids. 3. P.r.n. BiPAP. 4. The patient instructed on the importance of discontinuing tobacco use. 5. Surveillance CT of the chest as an outpatient. 6. Outpatient PFTs. 7. A 6-minute walk prior to discharge. I do appreciate the privilege in sharing in the patient's care. NIKKI RONQUILLO MD DR: JUAN ANTONIO/manny JOB#: [id number] / [id number]
[2017-06-15] MEDS: DOXYCYCLINE HYCLATE 100 MG TABLET PO SCH ×2 (16:59→20:57)
[2017-06-16] MEDS: LORazepam 0.5 MG TABLET PO PRN ×2 (02:50→21:21)
[2017-06-16 03:00] VITALS: BP 99/63
[2017-06-16 07:00] VITALS: BP 95/53
[2017-06-16] MEDS: IPRATRPIUM/ALBUTEROL 0.5/2.5MG 3 ML NEBU. NEB SCH ×3 (08:05→20:06)
[2017-06-16] MEDS: methylPREDNISolone SOD SUCC PF 40 MG/ML VIAL. IV SCH (09:00)
[2017-06-16] MEDS: DOXYCYCLINE HYCLATE 100 MG TABLET PO SCH ×2 (09:03→21:18)
[2017-06-16] MEDS: NICOTINE 21MG PATCH. TD SCH (09:08)
--- NOTE | 2017-06-16 09:54 | PDOC ---
PULMONARY PROGRESS NOTES Subjective PT FEELS BETTER LESS SOA COUGH PERSIST Vitals Vital Signs Date Time Temp Pulse Resp B/P (MAP) Pulse Ox O2 Delivery O2 Flow Rate FiO2 06/16/17 07:18 90 Nasal Cannula 4.0 06/16/17 07:00 97.7 85 18 95/53 (67) 97.7 General: Alert, No acute distress Lungs: Wheezing Cardiovascular: S1 Abdomen: Soft Neuro Exam: Alert Extremities: No Edema Skin: Warm Labs Laboratory Tests Test 06/14/17 18:40 06/14/17 18:45 06/14/17 19:05 06/14/17 20:05 Sodium Level 140 mmol/L (136-145) Potassium Level 3.9 mmol/L (3.5-5.1) Chloride Level 103 mmol/L (98-107) Carbon Dioxide Level 28 mmol/L (21-32) Anion Gap 9 (6-14) Blood Urea Nitrogen 12 mg/dL (7-20) Creatinine 0.8 mg/dL (0.6-1.0) Estimated GFR (Cockcroft-Gault) 74.5 Glucose Level 128 mg/dL (70-99) Lactic Acid Level 1.7 mmol/L (0.4-2.0) Calcium Level 9.3 mg/dL (8.5-10.1) Magnesium Level 1.8 mg/dL (1.8-2.4) Total Bilirubin 0.4 mg/dL (0.2-1.0) Direct Bilirubin 0.1 mg/dL (0.0-0.2) Aspartate Amino Transf (AST/SGOT) 17 U/L (15-37) Alanine Aminotransferase (ALT/SGPT) 23 U/L (14-59) Alkaline Phosphatase 75 U/L (46-116) Creatine Kinase 116 U/L (26-192) Creatine Kinase MB (Mass) 2.0 ng/mL (0.0-3.6) Creatine Kinase MB Relative Index 1.7 % (0-4) Troponin I Quantitative < 0.017 ng/mL (0.000-0.055) RY-Adc-U-Type Natriuretic Peptide 183 pg/mL (0-124) Total Protein 7.9 g/dL (6.4-8.2) Albumin 4.0 g/dL (3.4-5.0) Lipase 150 U/L (73-393) Thyroid Stimulating Hormone (TSH) 4.936 uIU/mL (0.358-3.74) White Blood Count 10.5 x10^3/uL (4.0-11.0) Red Blood Count 5.06 x10^6/uL (3.50-5.40) Hemoglobin 15.1 g/dL (12.0-15.5) Hematocrit 45.8 % (36.0-47.0) Mean Corpuscular Volume 91 fL (79-100) Mean Corpuscular Hemoglobin 30 pg (25-35) Mean Corpuscular Hemoglobin Concent 33 g/dL (31-37) Red Cell Distribution Width 14.1 % (11.5-14.5) Platelet Count 307 x10^3/uL (140-400) Neutrophils (%) (Auto) 53 % (31-73) Lymphocytes (%) (Auto) 29 % (24-48) Monocytes (%) (Auto) 10 % (0-9) Eosinophils (%) (Auto) 8 % (0-3) Basophils (%) (Auto) 1 % (0-3) Neutrophils # (Auto) 5.5 x10^3uL (1.8-7.7) Lymphocytes # (Auto) 3.0 x10^3/uL (1.0-4.8) Monocytes # (Auto) 1.0 x10^3/uL (0.0-1.1) Eosinophils # (Auto) 0.8 x10^3/uL (0.0-0.7) Basophils # (Auto) 0.1 x10^3/uL (0.0-0.2) Influenza Type A Antigen Negative (NEGATIVE) Influenza Type B Antigen Negative (NEGATIVE) O2 Saturation 98 % (92-99) Arterial Blood pH 7.34 (7.35-7.45) Arterial Blood pCO2 at Patient Temp 47 mmHg (35-46) Arterial Blood pO2 at Patient Temp 110 mmHg (75-108) Arterial Blood HCO3 25 mmol/L (21-28) Arterial Blood Base Excess -1 mmol/L (-3-3) FiO2 35.0 Test 06/14/17 22:42 06/15/17 02:50 06/15/17 08:45 Nasal Screen MRSA (PCR) Negative (Negative) Troponin I Quantitative < 0.017 ng/mL (0.000-0.055) < 0.017 ng/mL (0.000-0.055) Medications Active Scripts Medications Dose Route/Sig Max Daily Dose Days Date Category Combivent Respimat Inhal (Ipratropium/Albuterol Sulfate) 4 Gm Aer.w.adap 1 Puff IH QID 11/09/15 Reported Combivent Respimat Inhal (Ipratropium/Albuterol Sulfate) 4 Gm Aer.w.adap 1 Puff IH QID 11/09/15 Reported Tramadol Hcl 50 Mg Tablet 50 Mg PO PRN Q6HRS PRN 11/09/15 Rx Impression . 1. Acute respiratory failure secondary to acute exacerbation of chronic obstructive pulmonary disease. 2. Acute exacerbation of chronic obstructive pulmonary disease. 3. Acute nonspecific bronchitis. 4. Tobacco dependence. 5. Respiratory acidosis. Plan . HOME IN AM FOLLOW UP WITH ME IN OFFICE IN 2-4 WEEKS 6 MIN PFT ONCE SHE RECOVERS NIKKI RONQUILLO MD Jun 16, 2017 09:54
[2017-06-16 10:51] VITALS: BP 105/63
[2017-06-16] MEDS ORDERED: ONDANSETRON PF 4 MG/2 ML VIAL. IV PRN (12:00)
--- NOTE | 2017-06-16 12:13 | PDOC ---
PROGRESS NOTES Chief Complaint Chief Complaint COPD Exacerbation Colitis Hypothyroidism Chest pain History of Present Illness History of Present Illness Transferred from ICU thursday night No wheezing but BS dec Steroids lowered today PUlmo note reviewed NO inc in soa PLAn: Gary ibrahim PPI COnt steroid Possible home tmr 6 MW Vitals Vitals Vital Signs Date Time Temp Pulse Resp B/P (MAP) Pulse Ox O2 Delivery O2 Flow Rate FiO2 06/16/17 11:17 Nasal Cannula 4.0 06/16/17 10:51 97.9 76 20 105/63 (77) 97.9 06/16/17 07:18 90 Physical Exam General: Alert, Oriented X3, No acute distress Heart: Regular rate, No murmurs Lungs: Clear, Other Abdomen: Normal bowel sounds, Soft, No tenderness Extremities: No cyanosis, Normal pulses Skin: No rashes, No breakdown Review of Systems Review of Systems no inc soa, cp, or fevers, abd pain, diarrhea Assessment and Plan Assessmemt and Plan Problems Medical Problems: (1) Chest pain Status: Acute (2) COPD exacerbation Status: Acute (3) Hypothyroidism Status: Acute Problems: Comment Review of Relevant I have reviewed the following items leila (where applicable) has been applied. Labs Laboratory Tests Test 06/14/17 18:40 06/14/17 18:45 06/14/17 19:05 06/14/17 20:05 Sodium Level 140 mmol/L (136-145) Potassium Level 3.9 mmol/L (3.5-5.1) Chloride Level 103 mmol/L (98-107) Carbon Dioxide Level 28 mmol/L (21-32) Anion Gap 9 (6-14) Blood Urea Nitrogen 12 mg/dL (7-20) Creatinine 0.8 mg/dL (0.6-1.0) Estimated GFR (Cockcroft-Gault) 74.5 Glucose Level 128 mg/dL (70-99) Lactic Acid Level 1.7 mmol/L (0.4-2.0) Calcium Level 9.3 mg/dL (8.5-10.1) Magnesium Level 1.8 mg/dL (1.8-2.4) Total Bilirubin 0.4 mg/dL (0.2-1.0) Direct Bilirubin 0.1 mg/dL (0.0-0.2) Aspartate Amino Transf (AST/SGOT) 17 U/L (15-37) Alanine Aminotransferase (ALT/SGPT) 23 U/L (14-59) Alkaline Phosphatase 75 U/L (46-116) Creatine Kinase 116 U/L (26-192) Creatine Kinase MB (Mass) 2.0 ng/mL (0.0-3.6) Creatine Kinase MB Relative Index 1.7 % (0-4) Troponin I Quantitative < 0.017 ng/mL (0.000-0.055) CK-Yrl-X-Type Natriuretic Peptide 183 pg/mL (0-124) Total Protein 7.9 g/dL (6.4-8.2) Albumin 4.0 g/dL (3.4-5.0) Lipase 150 U/L (73-393) Thyroid Stimulating Hormone (TSH) 4.936 uIU/mL (0.358-3.74) White Blood Count 10.5 x10^3/uL (4.0-11.0) Red Blood Count 5.06 x10^6/uL (3.50-5.40) Hemoglobin 15.1 g/dL (12.0-15.5) Hematocrit 45.8 % (36.0-47.0) Mean Corpuscular Volume 91 fL (79-100) Mean Corpuscular Hemoglobin 30 pg (25-35) Mean Corpuscular Hemoglobin Concent 33 g/dL (31-37) Red Cell Distribution Width 14.1 % (11.5-14.5) Platelet Count 307 x10^3/uL (140-400) Neutrophils (%) (Auto) 53 % (31-73) Lymphocytes (%) (Auto) 29 % (24-48) Monocytes (%) (Auto) 10 % (0-9) Eosinophils (%) (Auto) 8 % (0-3) Basophils (%) (Auto) 1 % (0-3) Neutrophils # (Auto) 5.5 x10^3uL (1.8-7.7) Lymphocytes # (Auto) 3.0 x10^3/uL (1.0-4.8) Monocytes # (Auto) 1.0 x10^3/uL (0.0-1.1) Eosinophils # (Auto) 0.8 x10^3/uL (0.0-0.7) Basophils # (Auto) 0.1 x10^3/uL (0.0-0.2) Influenza Type A Antigen Negative (NEGATIVE) Influenza Type B Antigen Negative (NEGATIVE) O2 Saturation 98 % (92-99) Arterial Blood pH 7.34 (7.35-7.45) Arterial Blood pCO2 at Patient Temp 47 mmHg (35-46) Arterial Blood pO2 at Patient Temp 110 mmHg (75-108) Arterial Blood HCO3 25 mmol/L (21-28) Arterial Blood Base Excess -1 mmol/L (-3-3) FiO2 35.0 Test 06/14/17 22:42 06/15/17 02:50 06/15/17 08:45 Nasal Screen MRSA (PCR) Negative (Negative) Troponin I Quantitative < 0.017 ng/mL (0.000-0.055) < 0.017 ng/mL (0.000-0.055) Microbiology 06/14/17 Blood Culture - Preliminary, Resulted NO GROWTH AFTER 1 DAY Medications Current Medications Lorazepam (Ativan) 1 mg 1X ONCE IV Last administered on 06/14/17 19:17; Start 06/14/17 at 18:45; Stop 06/14/17 at 18:49; Status DC Sodium Chloride 1,000 ml @ 1,000 mls/hr Q1H IV Last administered on 18:41; Start 06/14/17 at 18:41; Stop 06/14/17 at 19:40; Status DC Sodium Chloride (Normal Saline Flush) 10 ml QSHIFT PRN IV AFTER MEDS AND BLOOD DRAWS; Start 06/14/17 at 18:45 Albuterol/ Ipratropium (Duoneb) 3 ml 1X ONCE NEB Last administered on 19:05; Start 06/14/17 at 18:45; Stop 06/14/17 at 18:49; Status DC Methylprednisolone Sodium Succinate (SOLU-Medrol 125MG VIAL) 125 mg 1X ONCE IV Last administered on 06/14/17 18:55; Start 06/14/17 at 18:45; Stop at 18:49; Status DC Albuterol/ Ipratropium (Duoneb) 3 ml 1X ONCE NEB Last administered on 19:06; Start 06/14/17 at 18:45; Stop 06/14/17 at 18:49; Status DC Albuterol/ Ipratropium (Duoneb) 3 ml 1X ONCE NEB Last administered on 19:07; Start 06/14/17 at 18:45; Stop 06/14/17 at 18:49; Status DC Methylprednisolone Sodium Succinate (SOLU-Medrol 125MG VIAL) 125 mg STK-MED ONCE .ROUTE ; Start 06/14/17 at 18:43; Stop 06/14/17 at 18:44; Status DC Lorazepam (Ativan) 2 mg STK-MED ONCE .ROUTE ; Start 06/14/17 at 18:43; Stop at 18:44; Status DC Ondansetron HCl (Zofran) 4 mg PRN Q8HRS PRN IV NAUSEA/VOMITING; Start at 20:45; Stop 06/15/17 at 20:44; Status DC Fentanyl Citrate (Fentanyl 2ml Vial) 50 mcg PRN Q2HR PRN IV PAIN; Start at 20:45; Stop 06/15/17 at 20:44; Status DC Sodium Chloride 1,000 ml @ 125 mls/hr Q8H IV ; Start 06/14/17 at 20:44; Stop 06/15/17 at 06:28; Status DC Acetaminophen (Tylenol) 650 mg PRN Q4HRS PRN PO FEVER; Start 06/14/17 at 20:45 ; Stop 06/15/17 at 20:44; Status DC Albuterol/ Ipratropium (Duoneb) 3 ml RTQID NEB Last administered on 06/16/17 08:05; Start 06/15/17 at 08:00; Stop 06/16/17 at 07:59; Status DC Levofloxacin/ Dextrose 150 ml @ 100 mls/hr 1X ONCE IV Last administered on 20:58; Start 06/14/17 at 20:45; Stop 06/14/17 at 22:14; Status DC Pneumococcal Polyvalent Vaccine (Pneumovax 23) 0.5 ml ONCE ONCE VAX IM Last administered on 06/15/17 11:19; Start 06/15/17 at 09:00; Stop 06/15/17 at 09 :01; Status DC Pneumococcal Polyvalent Vaccine (Do NOT chart on this placeholder) 1 each PRN 1X PRN MC SEE COMMENTS; Start 06/14/17 at 23:15; Status Cancel Methylprednisolone Sodium Succinate (SOLU-Medrol 40MG VIAL) 40 mg Q8HRS IV Last administered on 06/15/17 06:23; Start 06/15/17 at 06:00; Stop 06/15/17 at 12:28; Status DC Lorazepam (Ativan) 0.5 mg 1X ONCE IV Last administered on 06/15/17 07:13; Start 06/15/17 at 07:00; Stop 06/15/17 at 07:01; Status DC Lorazepam (Ativan) 0.5 mg PRN Q8HRS PRN PO ANXIETY / AGITATION Last administered on 06/16/17 02:50; Start 06/15/17 at 07:00 Nicotine (Nicoderm Cq 21mg) 1 patch DAILY TD Last administered on 06/16/17 09 :08; Start 06/15/17 at 09:00 Methylprednisolone Sodium Succinate (SOLU-Medrol 40MG VIAL) 60 mg DAILY IV Last administered on 06/16/17 09:00; Start 06/16/17 at 09:00 Doxycycline Hyclate (Vibra-Tab) 100 mg BID PO Last administered on 06/16/17 09:03; Start 06/15/17 at 13:00 Ondansetron HCl (Zofran) 4 mg PRN Q6HRS PRN IV NAUSEA/VOMITING; Start at 12:00 Active Scripts Active Tramadol Hcl 50 Mg Tablet 50 Mg PO PRN Q6HRS PRN Reported Combivent Respimat Inhal (Ipratropium/Albuterol Sulfate) 4 Gm Aer.w.adap 1 Puff IH QID Combivent Respimat Inhal (Ipratropium/Albuterol Sulfate) 4 Gm Aer.w.adap 1 Puff IH QID Vitals/I & O Vital Sign - Last 24 Hours 06/15/17 06/15/17 06/15/17 06/15/17 13:21 15:11 16:46 19:00 Temp 98.2 97.8 98.2 97.8 Pulse 104 103 Resp 18 20 B/P (MAP) 110/74 (86) 103/55 (71) Pulse Ox 95 94 96 92 O2 Delivery Nasal Cannula Nasal Cannula Nasal Cannula Nasal Cannula O2 Flow Rate 3.0 2.0 3.0 2.0 06/15/17 06/15/17 06/15/17 06/16/17 20:00 20:17 23:00 03:00 Temp 98.3 97.9 98.3 97.9 Pulse 102 99 Resp 20 18 B/P (MAP) 97/52 (67) 99/63 (75) Pulse Ox 95 91 93 O2 Delivery Nasal Cannula Nasal Cannula Nasal Cannula Nasal Cannula O2 Flow Rate 3.0 3.0 2.0 3.0 06/16/17 06/16/17 06/16/17 06/16/17 07:00 07:18 08:00 10:51 Temp 97.7 97.9 97.7 97.9 Pulse 85 76 Resp 18 20 B/P (MAP) 95/53 (67) 105/63 (77) Pulse Ox 95 90 O2 Delivery Room Air Nasal Cannula Nasal Cannula O2 Flow Rate 4.0 2.0 06/16/17 11:17 O2 Delivery Nasal Cannula O2 Flow Rate 4.0 Intake and Output 06/15/17 06/15/17 06/16/17 15:00 23:00 07:00 Intake Total 750 ml 240 ml Output Total 850 ml Balance -100 ml 240 ml DAMARIS SALCIDO MD Jun 16, 2017 12:13
[2017-06-16 15:25] VITALS: BP 110/62
[2017-06-16] MEDS ORDERED: BENZONATATE 100 MG CAPSULE. PO PRN (17:30)
[2017-06-16 19:00] VITALS: BP 102/69
[2017-06-16 23:00] VITALS: BP 109/61
[2017-06-17 03:00] VITALS: BP 91/55
[2017-06-17 07:00] VITALS: BP 95/53
[2017-06-17] MEDS: IPRATRPIUM/ALBUTEROL 0.5/2.5MG 3 ML NEBU. NEB SCH ×3 (07:32→15:14)
[2017-06-17] MEDS: DOXYCYCLINE HYCLATE 100 MG TABLET PO SCH (08:06)
[2017-06-17] MEDS: NICOTINE 21MG PATCH. TD SCH (08:06)
[2017-06-17] MEDS: methylPREDNISolone SOD SUCC PF 40 MG/ML VIAL. IV SCH (08:07)
[2017-06-17] MEDS ORDERED: methylPREDNISolone SOD SUCC PF 40 MG/ML VIAL. IV SCH (09:00)
[2017-06-17] MEDS ORDERED: PRED20TA PO (09:37)
[2017-06-17] MEDS ORDERED: DOXY100C14 PO (09:38)
--- NOTE | 2017-06-17 09:40 | PDOC3 ---
Discharge Summary Visit Information Date of Admission: Jun 14, 2017 Date of Discharge: Jun 17, 2017 Admitting Diagnosis Comment: COPD Exacerbation Colitis Hypothyroidism Chest pain Final Diagnosis Problems Medical Problems: (1) Chest pain Status: Acute (2) COPD exacerbation Status: Acute (3) Hypothyroidism Status: Acute Brief Hospital Course Allergies Allergies Coded Allergies Type Severity Reaction Last Updated Verified codeine Adverse Reaction Intermediate Nausea and Vomiting 10/28/15 Yes Vital Signs Vital Signs Date Time Temp Pulse Resp B/P (MAP) Pulse Ox O2 Delivery O2 Flow Rate FiO2 06/17/17 07:34 93 Room Air 06/17/17 07:00 97.9 90 20 95/53 (67) 97.9 06/16/17 15:30 4.0 Brief Hospital Course Ms. Cristina is a 57 old female who has COPD/asthma on inhalers at home admitted for an exacerbation, (She is on Qvar), CXR ok, co managed with pulmo, Started steroids systemic and PO doxy, NOw ready for dc. Stayed 2-3 MN as inpt Seen and examined Consults: pulmo, Proc: none Discharge Information Condition at Discharge: Improved, Stable Disposition/Orders: D/C to Home Scheduled Ipratropium/Albuterol Sulfate (Combivent Respimat Inhal), 1 PUFF IH QID, ( Reported) Ipratropium/Albuterol Sulfate (Combivent Respimat Inhal), 1 PUFF IH QID, ( Reported) Scheduled PRN Tramadol Hcl (Tramadol Hcl), 50 MG PO PRN Q6HRS PRN for MODERATE PAIN Discontinued Medications Amoxicillin/Potassium Clav (Augmentin 875-125 Tablet), 1 TAB PO BID, (Reported) DAMARIS SALCIDO MD Jun 17, 2017 09:40
[2017-06-17 11:00] VITALS: BP 104/64
[2017-06-17 15:00] VITALS: BP 104/61
--- NOTE | 2017-06-17 17:28 | PDOC ---
PULMONARY PROGRESS NOTES Subjective PT FEELS BETTER LESS SOA COUGH PERSIST Vitals Vital Signs Date Time Temp Pulse Resp B/P (MAP) Pulse Ox O2 Delivery O2 Flow Rate FiO2 06/17/17 15:15 Room Air 06/17/17 15:00 97.9 106 20 104/61 (75) 93 97.9 06/17/17 08:00 2.0 General: Alert, No acute distress Lungs: Wheezing Cardiovascular: S1 Abdomen: Soft Neuro Exam: Alert Extremities: No Edema Skin: Warm Medications Active Scripts Medications Dose Route/Sig Max Daily Dose Days Date Category Combivent Respimat Inhal (Ipratropium/Albuterol Sulfate) 4 Gm Aer.w.adap 1 Puff IH QID 11/09/15 Reported Combivent Respimat Inhal (Ipratropium/Albuterol Sulfate) 4 Gm Aer.w.adap 1 Puff IH QID 11/09/15 Reported Tramadol Hcl 50 Mg Tablet 50 Mg PO PRN Q6HRS PRN 11/09/15 Rx Impression . 1. Acute respiratory failure secondary to acute exacerbation of chronic obstructive pulmonary disease. 2. Acute exacerbation of chronic obstructive pulmonary disease. 3. Acute nonspecific bronchitis. 4. Tobacco dependence. 5. Respiratory acidosis. Plan . PT SEEN PRIOR TO D/C RX FOR NICOTROL INHALER WILL OBTAIN CT OUTPT AND PFT FOLLOW UP WITH ME IN OFFICE IN 2-4 WEEKS NIKKI RONQUILLO MD Jun 17, 2017 17:28
== END 2017-06-17 16:30 | disposition home or self-care (01) | DRG 189 ==
LOC: ER 18:34 → 1 WEST ICU 20:21 → 5 SOUTH 06-15 18:17
PROVIDERS: ADMIT Internal Medicine Hematology & Oncology; ATTEND Internal Medicine Hematology & Oncology
PROC: 5A09457 Assistance with Respiratory Ventilation, 24-96 Consecutive Hours, Continuous Positive Airway Pressure (ICD-10-PCS; principal; 2017-06-14)
DX: J96.01 Acute respiratory failure with hypoxia (principal); E87.2 Acidosis; J44.0 Chronic obstructive pulmonary disease with (acute) lower respiratory infection; J44.1 Chronic obstructive pulmonary disease with (acute) exacerbation; F17.210 Nicotine dependence, cigarettes, uncomplicated; E03.9 Hypothyroidism, unspecified
CPT/HCPCS: 36415; 36600; 71010; 80048; 80076; 82553; 82805; 83605; 83690; 83735; 83880; 84443; 84484; 85025; 87040; 87641; 87804; 90732; 93005; 94250; 94620; 94640; 94660; 94760; 96361; 96374; 96375; 99406; J1956; J2060; J2920; J2930; J7030; J7620; 99291-25